=== PATIENT | male | born 1985 | race Caucasian/White ===

== ENCOUNTER 2019-09-12 12:54 | Emergency (ER) | payer OTHER ==
[2019-09-12] MEDS ORDERED: LIDOCAINE 1% INJ-PF (10 MG/ML) 30 ML SDV INJ ONE (13:17)
[2019-09-12] MEDS ORDERED: DIPH/PERTUSS(ACELL)/TETANUS VAC/PF 0.5 ML SYR (>=10YO) IM ONE (13:18)
--- NOTE | 2019-09-12 13:21 | ER Document Report ---
HPI - HPI Patient complains to provider of: Finger laceration Time Seen by Provider: 09/12/19 13:12 Onset: Just prior to arrival Onset/Duration: Sudden Quality of pain: Achy Context: 34-year-old male presents emergency department with complaints of laceration to the anterior distal of his left third finger. Reports he was working on a motor and he cut his finger. Patient is able to flex and extend finger without problems. Reports his tetanus is due in 2019. Associated Symptoms: None Exacerbated by: Denies Relieved by: Denies Similar symptoms previously: No Recently seen / treated by doctor: No Past Medical History - General Information source: Patient - Social History Smoking Status: Unknown if Ever Smoked Occupation: [employer] Family History: None Patient has suicidal ideation: No Patient has homicidal ideation: No - Medical History Medical History: Negative Past Surgical History: Reports: Hx Orthopedic Surgery - ACL repair Vertical Provider Document - CONSTITUTIONAL Agree With Documented VS: Yes Exam Limitations: No Limitations General Appearance: WD/WN, No Apparent Distress - HEENT HEENT: Atraumatic, Normocephalic - NECK Neck: Normal Inspection, Supple - RESPIRATORY Respiratory: No Respiratory Distress - MUSCULOSKELETAL/EXTREMETIES Musculoskeletal/Extremeties: MAEW, FROM, Tender - NEURO Level of Consciousness: Awake, Alert, Appropriate Motor/Sensory: No Motor Deficit - DERM Integumentary: Warm, Dry, Laceration - L-shaped laceration approximately 2 cm to left anterior distal third finger. No active bleeding cap refill less than 2 seconds able to extend and flex his finger without problems. Course - Re-evaluation Re-evalutation: 09/12/19 14:16 Finger X-Ray 09/12/19 13:17 IMPRESSION: No fracture or dislocation of the left long finger. No radiopaque foreign body appreciated. - Vital Signs Vital signs: Temp Pulse Resp BP Pulse Ox 98.0 F 100 20 166/66 H 100 09/12/19 12:57 09/12/19 12:57 09/12/19 12:57 09/12/19 12:57 09/12/19 12:57 - Diagnostic Test Radiology reviewed: Image reviewed, Reports reviewed Procedures - Immobilization Left 3rd digit Pre-Proc Neuro Vasc Exam: Normal Immobilizer type: Finger splint (Static) Performed by: PCT Post-Proc Neuro Vasc Exam: Unchanged from pre-exam - Laceration/Wound Repair Left 3rd digit Wound length (cm): 2 Wound's Depth, Shape: Superficial, Linear - L Shape Laceration pre-procedure: Sterile drapes applied, Shur-Clens applied Anesthetic type: 1% Lidocaine Volume Anesthetic (mLs): 2 Wound explored: Clean Suture Size/Type: 5:0 Number of Sutures: 6 Layer Closure?: No Post-procedure wound care: Splint applied Post-procedure NV exam normal: Yes Complications: No Discharge - Discharge Clinical Impression: Finger laceration with suture repair Condition: Stable Disposition: HOME, SELF-CARE Instructions: Laceration Care ([facility]), Soap Cleansing ([facility]), Temporary Splint ([facility]), Tetanus Immunization Given ([facility]) Additional Instructions: *You have been treated for a finger laceration with suture repair Take Tylenol or Motrin as indicated for pain Wear the finger splint to protect your finger *Monitor the site for signs of infection such as increasing pain, redness, swelling, warmth *Keep the finger clean *Return to the emergency department in 10 to 14 days for suture removal *Return to emergency department earlier for signs of infection, worsening condition, changes, needs Monitor your blood pressure. Your blood pressure was elevated today. This may be because you were anxious, in pain or because you need medication. It is important to follow up with your primary care provider for full evaluation. Forms: Elevated Blood Pressure Referrals: LOCALMD,NO [Primary Care Provider] - Follow up as needed
--- NOTE | 2019-09-12 13:48 | RADIOLOGY REPORT (SQ) ---
EXAM DESCRIPTION: FINGER LEFT COMPLETED DATE/TIME: 09/12/2019 1:37 pm REASON FOR STUDY: laceration COMPARISON: None. NUMBER OF VIEWS: Three views. TECHNIQUE: AP, lateral, and oblique images acquired of the left third finger. LIMITATIONS: None. FINDINGS: MINERALIZATION: Normal. BONES: No acute fracture or dislocation. No worrisome bone lesions. SOFT TISSUES: Soft tissue laceration with bandage material about the digit. OTHER: No other significant finding. IMPRESSION: No fracture or dislocation of the left long finger. No radiopaque foreign body apprecia humberto. TECHNICAL DOCUMENTATION: JOB ID: [id number] App[employer]ion- All Rights Reserved Reading location - IP/workstation name: [email or web address]
[2019-09-12 15:01] VITALS: BP 126/72
== END 2019-09-12 14:58 | disposition home or self-care (01) ==
LOC: ER 12:54
DX: S61.213A Laceration without foreign body of left middle finger without damage to nail, initial encounter (principal); W23.0XXA Caught, crushed, jammed, or pinched between moving objects, initial encounter; Y93.89 Activity, other specified
CPT/HCPCS: 99283; 90471; 73140; 90715; 12001; J3490